=== PATIENT | female | born 1995 | race Caucasian/White ===

== ENCOUNTER 2018-09-11 11:59 | Emergency (ER) | payer BC, OTHER ==
[2018-09-11 12:00] VITALS: BMI 27.4
[2018-09-11] MEDS ORDERED: DiphenhydrAMINE 50 mg/ml Inj IVP STA (12:26)
--- NOTE | 2018-09-11 12:42 | ED PDOC ---
Arrival/HPI - General Chief Complaint: Allergic Reaction Time Seen by Provider: 09/11/18 12:01 Historian: Patient - History of Present Illness Narrative History of Present Illness (Text): 09/11/18 12:29 23 y/o female with no significant PMH presents to the ED c/o rash x 1 day. States that the rash occurred after handling her pet hedgehog, she thinks she may be allergic to it because this has happened a few times in the past but never this severe. Rash is very pruritic, diffuse, raised, and red. Has not taken any medication for symptoms. No other known allergens, new lotions, foods, or detergents. No recent travel or sick contacts. Denies throat/mouth/lip/tongue swelling, SOB, wheezing, nausea, vomiting, dizziness, headache, joint pain, fever, chills, or any other associated symptoms. Past Medical History - Provider Review Nursing Documentation Reviewed: Yes - Infectious Disease Hx of Infectious Diseases: None - Tetanus Immunization Tetanus Immunization: Unknown - Past Medical History Past Medical History: No Previous - Psychiatric Hx Substance Use: No - Past Surgical History Past Surgical History: No Previous - Suicidal Assessment Feels Threatened In Home Enviroment: No Family/Social History - Physician Review Nursing Documentation Reviewed: Yes Family/Social History: No Known Family HX Smoking Status: Never Smoked Hx Alcohol Use: No Hx Substance Use: No Allergies/Home Meds Allergies/Adverse Reactions: Allergies No Known Allergies Allergy (Verified 04/03/14 22:12) Review of Systems - Review of Systems Constitutional: Normal. absent: Fevers Eyes: Normal. absent: Vision Changes ENT: Normal. absent: Sore Throat, Sinus Congestion Respiratory: Normal. absent: SOB, Cough Cardiovascular: Normal. absent: Chest Pain, Palpitations Gastrointestinal: Normal. absent: Abdominal Pain, Nausea, Vomiting Genitourinary Female: Normal. absent: Dysuria, Frequency Musculoskeletal: Normal. absent: Arthralgias, Back Pain, Neck Pain Skin: Rash, Pruritis Neurological: Normal. absent: Headache, Dizziness Physical Exam Vital Signs Reviewed: Yes Vital Signs Temp Pulse Resp BP Pulse Ox 09/11/18 12:07 98.5 F 97 H 17 126/78 98 Temperature: Afebrile Blood Pressure: Normal Pulse: Regular Respiratory Rate: Normal Appearance: Positive for: Well-Appearing, Non-Toxic, Comfortable Pain Distress: None Mental Status: Positive for: Alert and Oriented X 3 - Systems Exam Head: Present: Atraumatic, Normocephalic Pupils: Present: PERRL Extroacular Muscles: Present: EOMI Conjunctiva: Present: Normal Mouth: Present: Moist Mucous Membranes, Normal Lips (no swelling), Normal Tounge (no swelling) Pharnyx: Present: Normal. No: ERYTHEMA, EXUDATE, TONSILS ENLARGED, Peritonsilar Swelling, Uvular Deviation, Muffled/Hoarse Voice, Strider, Other (no drooling or tripoding) Neck: Present: Normal Range of Motion Respiratory/Chest: Present: Clear to Auscultation, Good Air Exchange. No: Respiratory Distress, Accessory Muscle Use, Wheezes Cardiovascular: Present: Regular Rate and Rhythm, Normal S1, S2, Peripheal Pulses Present Abdomen: No: Tenderness Back: No: CVA Tenderness Upper Extremity: Present: Normal ROM, NORMAL PULSES, Neurovascularly Intact, Capillary Refill < 2s. No: Cyanosis, Edema, Tenderness, Temperature Abnormalties Lower Extremity: Present: NORMAL PULSES, Normal ROM, Neurovascularly Intact, Capillary Refill < 2 s. No: Edema, Tenderness, Temperature Abnormalties Neurological: Present: GCS=15, Speech Normal, Motor Func Grossly Intact, Normal Sensory Function, Gait Normal Skin: Present: Warm, Dry, Other (erythematous, pruritic, diffuse wheals over all 4 extremities, chest, abdomen, back, and face) Lymphatic: No: Cervical Adenopathy Psychiatric: Present: Alert, Oriented x 3, Normal Insight, Normal Concentration, Normal Affect, Normal Mood Medical Decision Making ED Course and Treatment: Initial Plan: * IV Solumedrol, Benadryl, Pepcid * Reassess and Disposition 12:58 nausea after medication, zofran ordered 13:30 On re-evaluation, patient reports significant improvement in symptoms. Urticaria are less pronounced, with decreased erythema and pruritus. Advised PMD and dermatology followup. Diagnostic testing results and plan of care discussed with patient. Strict instructions given regarding prescription use, importance of followup, and signs/symptoms to return to ER including SOB, throat/lip/mouth swelling, or any other new/worsening symptoms. Pt verbalized understanding of discussion. Patient is A&Ox3, ambulating with steady gait, with vital signs stable for discharge. Disposition/Present on Arrival - Present on Arrival Any Indicators Present on Arrival: No History of DVT/PE: No History of Uncontrolled Diabetes: No Urinary Catheter: No History of Decub. Ulcer: No History Surgical Site Infection Following: None - Disposition Have Diagnosis and Disposition been Completed?: Yes Diagnosis: Allergic urticaria Disposition: HOME/ ROUTINE Disposition Time: 13:30 Patient Plan: Discharge Condition: IMPROVED Discharge Instructions (ExitCare): Hives (DC) Additional Instructions: Prednisone 2 tabs daily for 4 days starting tomorrow Pepcid every 12 hours for 4 days starting tonight Benadryl every 6 hours as needed Increase fluids Avoid contact with allergens Followup with light cleaner and primary doctor within 2 days Return to ER with any new/worsening symptoms Prescriptions: DiphenhydrAMINE [Benadryl] 25 mg PO Q6H PRN #30 cap PRN Reason: Itching / Pruritus Famotidine [Pepcid] 20 mg PO Q12H #9 tab predniSONE [predniSONE Tab] 40 mg PO DAILY #8 tab Referrals: [facility] [place] [Outside] - Follow up with primary Aleta Montalvo MD [Staff Provider] - Follow up with primary Krystal Clark MD [Medical Doctor] - Follow up with primary Forms: [facility] (Swazi), WORK NOTE
[2018-09-11 14:27] VITALS: BP 122/87; PULSE 70; RESP 18; TEMP 98; O2SAT 97
== END 2018-09-11 14:26 | disposition home or self-care (01) ==
LOC: ED 11:59
DX: L50.0 Allergic urticaria (principal)
CPT/HCPCS: 81025; 96374; 96375; 99283; J1200; J2405; J2930

== ENCOUNTER 2018-09-13 11:13 | Emergency (ER) | payer BC ==
[2018-09-13 11:14] VITALS: BMI 27.4
[2018-09-13 11:18] VITALS: RESP 18
[2018-09-13] MEDS ORDERED: DiphenhydrAMINE 50 mg/ml Inj IVP STA (11:32)
--- NOTE | 2018-09-13 11:35 | ED PDOC ---
Arrival/HPI - General Chief Complaint: Allergic Reaction Time Seen by Provider: 09/13/18 11:22 Historian: Patient - History of Present Illness Narrative History of Present Illness (Text): 09/13/18 12:17 23-year-old female presents today for reevaluation of a rash and pruritus. Patient states rash started after picking up a hedgehog. Patient states she knows she is allergic to the hedgehog as whenever she picks the hedgehog up she puts that had tracked down in her palms are itchy. Patient states she held the hedgehog the other day for about an hour and developed a rash to the entire body. Patient states that she has been taking 25 mg tablet of Benadryl as well as the prednisone without improvement in her symptoms. No medications have been taken today at home. Patient states the last dose of her benadryl was last ni ght. no prednisone taken today. pt denies new soaps lotions, detergents, perfumes. Patient states she did start taking a new medication prescribed by her armature straightener 2 weeks ago (minocylcine). pt states as some redness goes away in one area of the body it develops in another. Time/Duration: Other (3 days) Symptom Onset: Gradual Symptom Course: Unchanged, Intermittent Quality: Other (pruritis. no pain) Past Medical History - Provider Review Nursing Documentation Reviewed: Yes - Travel History Have you recently traveled outside [place] w/in the past 3 mons?: No - Infectious Disease Hx of Infectious Diseases: None - Tetanus Immunization Tetanus Immunization: Unknown - Past Medical History Past Medical History: No Previous - Psychiatric Hx Substance Use: No - Past Surgical History Past Surgical History: No Previous - Suicidal Assessment Feels Threatened In Home Enviroment: No Family/Social History - Physician Review Nursing Documentation Reviewed: Yes Family/Social History: Unknown Family HX Smoking Status: Never Smoked Hx Alcohol Use: No Hx Substance Use: No Allergies/Home Meds Allergies/Adverse Reactions: Allergies No Known Allergies Allergy (Verified 09/13/18 11:18) Home Medications: Home Meds Medication Instructions Recorded Confirmed Minocycline HCl [Ximino] 135 mg PO QPM 09/13/18 09/13/18 Review of Systems - Review of Systems Constitutional: absent: Fatigue, Fevers Respiratory: absent: SOB, Cough Cardiovascular: absent: Chest Pain, Palpitations Gastrointestinal: absent: Abdominal Pain, Nausea, Vomiting Genitourinary Female: absent: Dysuria, Frequency, Hematuria Musculoskeletal: absent: Arthralgias, Back Pain, Neck Pain Skin: Rash, Pruritis Neurological: absent: Headache, Dizziness Psychiatric: absent: Anxiety, Depression, Suicidal Ideation Physical Exam Vital Signs Reviewed: Yes Vital Signs Temp Pulse Resp BP Pulse Ox 09/13/18 11:16 98.3 F 97 H 18 109/72 99 Temperature: Afebrile Blood Pressure: Normal Pulse: Regular Respiratory Rate: Normal Appearance: Positive for: Well-Appearing, Non-Toxic, Comfortable Pain Distress: None Mental Status: Positive for: Alert and Oriented X 3 - Systems Exam Head: Present: Atraumatic Mouth: Present: Moist Mucous Membranes Pharnyx: Present: Normal. No: ERYTHEMA, EXUDATE Neck: Present: Normal Range of Motion Respiratory/Chest: Present: Clear to Auscultation, Good Air Exchange. No: Respiratory Distress, Accessory Muscle Use, Wheezes, Retracting, Rhonchi, Tachypneic Cardiovascular: Present: Regular Rate and Rhythm Abdomen: No: Tenderness Upper Extremity: Present: Normal ROM Lower Extremity: Present: Normal ROM Neurological: Present: GCS=15, Speech Normal Skin: Present: Warm, Dry, Rashes (Multiple raised erythematous plaques noted to the forearms dorsal aspect of the hands chest abdomen back and thighs blanching. Nontender.. ), Normal Color Psychiatric: Present: Alert, Oriented x 3 Medical Decision Making ED Course and Treatment: 09/13/18 13:10 Patient is nontoxic well-appearing in no distress with stable vital signs no angioedema. Lungs are clear to auscultation bilaterally there is no wheezing noted. The airway is patent Benadryl 50 mg IV Solu-Medrol 125 mg IV Pepcid 20 mg IV Patient reassessment: After medications patient is feeling much better the lungs are clear to auscultation bilaterally the airway is patent the patient is speaking in full sentences. Hives have improved. I advised continuing medications as prescribed and following up with the armature straightener within the next 2 days. I have advised the patient to stop taking the minocycline at this time it is the newest medication that she has been taking and may be the cause for her allergy. Patient verbalizes understanding of discharge instructions and need for immediate followup. All aspects of this case were discussed the attending of record. Impression :Allergic reaction Continue prednisone 60mg daily as prescribed Continue benadryl every 6 hours as needed for pruritis. continue pepcid daily Follow up with the armature straightener within the next 2 days. Stop taking Minocycline due to possible cause of allergic reaction Follow up with the primary care physician tomorrow. Return if symptoms worsen persist or if new symptoms develop: Shortness of breath, feeling of throat closing, difficulty speaking or any other concerning symptoms develop 09/13/18 13:32 Disposition/Present on Arrival - Present on Arrival Any Indicators Present on Arrival: No History of DVT/PE: No History of Uncontrolled Diabetes: No Urinary Catheter: No History of Decub. Ulcer: No History Surgical Site Infection Following: None - Disposition Have Diagnosis and Disposition been Completed?: Yes Diagnosis: Allergic reaction Disposition: HOME/ ROUTINE Disposition Time: 11:35 Patient Plan: Discharge Patient Problems: Current Active Problems Problem Status Onset Allergic reaction Acute Condition: GOOD Discharge Instructions (ExitCare): [place] (JANET) Additional Instructions: Continue prednisone 60mg daily as prescribed Continue benadryl every 6 hours as needed for pruritis. continue pepcid daily Follow up with the armature straightener within the next 2 days. Stop taking Minocycline due to possible cause of allergic reaction Follow up with the primary care physician tomorrow. Return if symptoms worsen persist or if new symptoms develop: Shortness of breath, feeling of throat closing, difficulty speaking or any other concerning symptoms develop Referrals: Aleta Montalvo MD [Staff Provider] - Follow up with primary Krystal Clark MD [Medical Doctor] - Follow up with primary [facility] [Outside] - Follow up with primary Forms: [facility] (E[place]ian), WORK NOTE, SCHOOL NOTE
[2018-09-13 13:12] VITALS: TEMP 98
[2018-09-13 13:33] VITALS: BP 124/75; PULSE 79; O2SAT 99
== END 2018-09-13 13:33 | disposition home or self-care (01) ==
LOC: ED 11:13
DX: T78.40XA Allergy, unspecified, initial encounter (principal)
CPT/HCPCS: 81025; 96374; 96375; 99285; J1200; J2930